=== PATIENT | male | born 1990 | race Caucasian/White ===

== ENCOUNTER 2023-10-24 20:56 | Emergency (ER) | payer OTHER ==
[~2023-10-24] VITALS: Ht 188 cm; Wt 95.3 kg
[2023-10-24] MEDS ORDERED: PANTOPRAZOLE 40 MG VIAL ONE (21:42)
[2023-10-24] MEDS ORDERED: ONDANSETRON HCL/PF 4 MG/2 ML VIAL ONE (21:42)
[2023-10-24] MEDS ORDERED: MORPHINE SULFATE INJ 2 MG/ML DISP.SYRIN ONE (21:42)
[2023-10-24] MEDS ORDERED: KETOROLAC TROMETHAMINE 15 MG/ML VIAL ONE (21:42)
[2023-10-24 21:55] LABS: BASOPHILS # (AUTO) 0.1 K/uL (0.0-0.2); BASOPHILS % (AUTO) 0.9 % (0.0-2.0); EOSINOPHILS # (AUTO) 0.1 K/uL (0.0-0.7); EOSINOPHILS % (AUTO) 1.1 % (0.0-6.0); HEMATOCRIT 46 % (39-51); HEMOGLOBIN 14.9 g/dL (13.5-17.5); LYMPHOCYTES # (AUTO) 1.6 K/uL (0.8-4.8); LYMPHOCYTES % (AUTO) 20.4 % (20.0-44.0); MEAN CORPUSCULAR HEMOGLOBIN 28 PG (26.0-33.0); MEAN CORPUSCULAR HGB CONC 33 g/dl (31.0-36.0); MEAN CORPUSCULAR VOLUME 84 fL (80-96); MONOCYTES # (AUTO) 0.5 K/uL (0.1-1.30); MONOCYTES % (AUTO) 6.5 % (2.0-12.0); NEUTROPHILS # (AUTO) 5.7 K/uL (1.8-8.9); NEUTROPHILS % (AUTO) 71.1 % (43.0-81.0); PLATELET COUNT (AUTO) 214 K/uL (150-450); RED CELL DISTRIBUTION WIDTH 12.9 % (11.5-15.0)
[2023-10-24] MEDS: MORPHINE SULFATE INJ 2 MG/ML DISP.SYRIN IV ONE (21:56)
[2023-10-24] MEDS: PANTOPRAZOLE 40 MG VIAL IV ONE (21:56)
[2023-10-24] MEDS: ONDANSETRON HCL/PF 4 MG/2 ML VIAL IVP ONE (21:56)
[2023-10-24] MEDS: IV NS 0.9% 1,000 ML BAG IV ONE (21:56)
[2023-10-24] MEDS: KETOROLAC TROMETHAMINE 15 MG/ML VIAL IV ONE (21:56)
[2023-10-24 22:12] LABS: ALBUMIN 3.8 g/dL (3.4-5.0); BILIRUBIN,DIRECT 0.2 mg/dL (0.0-0.2); BILIRUBIN,TOTAL 0.7 mg/dL (0.2-1.0); CALCIUM, SERUM 8.9 mg/dL (8.5-10.1); CREATININE 1.1 mg/dL (0.6-1.3); POTASSIUM 3.7 mmol/L (3.5-5.1); TOTAL PROTEIN, SERUM 7.4 g/dL (6.4-8.2)
[2023-10-24] MEDS ORDERED: AMOX-430 PO (22:35)
[2023-10-24 22:56] VITALS: BP 167/96; TEMP 98.4; O2SAT 100
== END 2023-10-24 22:56 | disposition home or self-care (01) ==
LOC: ER 21:09
DX: A08.8 Other specified intestinal infections (principal); R10.84 Generalized abdominal pain; I10 Essential (primary) hypertension
CPT/HCPCS: 99284; 96374; 96361; 96375; 85025; 80048; 83690; 80076; 36415; J2405; J7030; J2470; A4223; J2270; J1885